=== PATIENT | female | born 1965 | race Caucasian/White ===

== ENCOUNTER 2021-06-06 10:36 | Day surgery (SDC) | payer OTHER ==
[~2021-06-06 10:36] MED LIST: Metoclopramide 10 MG/2 ML SDV IV PRN; Sodium Chloride 0.9% 1,000 ML IV SCH
[2021-06-06] MEDS ORDERED: Propofol 200 MG/20 ML SDV ONE (12:25)
[2021-06-06 12:47] VITALS: BP 128/66; PULSE 66
== END 2021-06-06 13:15 | disposition home or self-care (01) ==
LOC: LB.SDS 10:36
PROVIDERS: ATTEND Surgery
DX: K57.30 Diverticulosis of large intestine without perforation or abscess without bleeding (principal); E04.9 Nontoxic goiter, unspecified; E66.9 Obesity, unspecified; L66.9 Cicatricial alopecia, unspecified; L66.1 Lichen planopilaris; Z79.899 Other long term (current) drug therapy; Z98.890 Other specified postprocedural states
CPT/HCPCS: 45378; J2704; J7030

== ENCOUNTER 2024-07-12 22:45 | Emergency (ER) | payer OTHER ==
[2024-07-12] MEDS ORDERED: Sodium Chloride 0.9% 10 ML Syringe FLUSH PRN (22:50)
[2024-07-12] MEDS: Nitroglycerin 0.4 MG Tab.SL SL PRN (22:59)
[2024-07-12] MEDS: Aspirin 81 MG Tab.Chew PO ONE ×2 (22:59→23:43)
[2024-07-12 23:25] LABS: HEMATOCRIT 40.5 % (37.0-47.0); HEMOGLOBIN 13.5 g/dL (11.5-16.5); MEAN CORPUSCULAR HEMOGLOBIN 31.1 pg (27.0-32.0); MEAN CORPUSCULAR HGB CONC 33.3 g/dL (31.0-35.0); MEAN PLATELET VOLUME 11.2 fL (6.0-10.0); RED BLOOD CELL COUNT 4.34 M/uL (3.80-5.80); RED CELL DISTRIBUTION WIDTH 13.3 % (11.0-16.0); WHITE BLOOD CELL COUNT,WBC 11.2 K/uL (4.0-11.0)
[2024-07-12] MEDS: Morphine 2 MG/ML SYRINGE IVPUSH PRN (23:30)
[2024-07-12 23:43] LABS: ALBUMIN 3.5 g/dL (3.4-5.0); ANION GAP 9.5 mmol/L (5.0-15.0); BILIRUBIN TOTAL 0.4 mg/dL (0.0-1.0); BUN/CREATININE RATIO 20.8 (6-25); CALCIUM 9.1 mg/dL (8.5-10.1); CARBON DIOXIDE,CO2 29.7 mmol/L (21.0-32.0); CREATININE 0.96 mg/dL (0.55-1.02); EST CRCL DRUG DOSING (CG) 59.07 mL/min; POTASSIUM,K 4.2 mmol/L (3.5-5.1); PROTEIN TOTAL,TP 6.9 g/dL (6.4-8.2); TROPONIN I HIGH SENSITIVITY 4.6 pg/ml (<=60.4)
[2024-07-13] MEDS: Ondansetron 4 MG/2 ML SDV IVPUSH ONE
[2024-07-13 09:17] VITALS: BP 131/74; PULSE 54
== END 2024-07-13 09:03 | disposition home or self-care (01) ==
LOC: SUPCPDRO 22:45 → LB.ED 22:45
DX: R07.82 Intercostal pain (principal); M54.6 Pain in thoracic spine; Z79.1 Long term (current) use of non-steroidal anti-inflammatories (NSAID)
CPT/HCPCS: 36415; 71045; 80053; 84484; 85027; 85379; 85730; 93005; 93010; 96374; 96375; 99284; 99285-25; A9270-GY; J2270; J2405